=== PATIENT | male | born 1970 | race American Indian/Alaskan Native ===

== ENCOUNTER 2016-11-12 10:21 | Emergency (ER) | payer OTHER ==
[2016-11-12 11:21] LABS: Basophils % (Auto) 1.5 % (0.0-1.8); Eosinophils % (Auto) 1.8 % (0.0-4.3); Hematocrit 44.4 % (35.5-45.6); Hemoglobin 14.5 gm/dl (11.8-15.2); Mean Corpuscular HGB Conc 33 % (32-34); Mean Corpuscular Hemoglobin 27 pg (28-32); Mean Corpuscular Volume 83 fl (84-94); Platelet Count 216 K/mm3 (140-440); Red Blood Count 5.34 M/mm3 (3.65-5.03); Red Cell Distribution Width 14.2 % (13.2-15.2); White Blood Count 4.6 K/mm3 (4.5-11.0)
[2016-11-12 11:31] LABS: Anion Gap 16 mmol/L; BUN/Creatinine Ratio 8.88; Blood Urea Nitrogen 8 mg/dL (9-20); Calcium 8.9 mg/dL (8.4-10.2); Carbon Dioxide 26 mmol/L (22-30); Chloride 102.1 mmol/L (98-107); Glucose 108 mg/dL (75-100); Potassium 3.9 mmol/L (3.6-5.0); Sodium 140 mmol/L (137-145)
--- NOTE | 2016-11-12 20:09 | Emergency Department Report ---
ED Chest Pain HPI - General Chief Complaint: Chest Pain Stated Complaint: CHEST/ARM PAIN Time Seen by Provider: 11/12/16 19:56 Source: patient Mode of arrival: Ambulatory Limitations: No Limitations - History of Present Illness Initial Comments: This is a pleasant 46-year-old gentleman who indicates he sat on and off chest pains for the last 2 or 3 days. [place] a clinical [place] He describes his job as fairly physical. The pain he describes feels like it catches that his left side of his chest. It is somewhat reproducible with movements but not always. He does sometimes get a tingling sensation in the left hand as well with it. He denies any others associated symptoms no shortness of breath. No diaphoresis. Does not seem to be exertional in nature. Patient does describe smoking he has a grandfather who had heart disease no first-degree relatives however. He does have a primary physician he follows with. Onset/Timin -: Gradual, days(s) Onset: other (alternate times) Pain Location: left chest Pain Radiation: other (L hand) Severity: mild Quality: other (grabbing) Consistency: intermittent, now resolved Improves With: nothing Worsens With: nothing re: denies: nausea, vomting, diaphoresis Other Symptoms: denies: cough, fever Treatments Prior to Arrival: none - Related Data Allergies Allergy/AdvReac Type Severity Reaction Status Date / Time No Known Allergies Allergy Verified 11/12/16 10:39 JESUS score - Jesus Score Age > 65: (0) No Aspirin use within the Past 7 Days: (0) No 3 or more CAD Risk Factors: (0) No 2 or more Angina events in past 24 hrs: (1) Yes Known CAD with more than 50% Stenosis: (0) No Elevated Cardiac Markers: (0) No ST Deviation Greater than 0.5mm: (0) No JESUS Score: 1 ED Review of Systems ROS: Stated complaint: CHEST/ARM PAIN Other details as noted in HPI Constitutional: denies: chills, fever Eyes: denies: eye pain, eye discharge, vision change ENT: denies: ear pain, throat pain Respiratory: denies: cough, shortness of breath, wheezing Cardiovascular: chest pain. denies: palpitations Endocrine: no symptoms reported Gastrointestinal: denies: abdominal pain, nausea, diarrhea Genitourinary: denies: urgency, dysuria Musculoskeletal: denies: back pain, joint swelling, arthralgia Skin: denies: rash, lesions Neurological: denies: headache, weakness, paresthesias Psychiatric: denies: anxiety, depression Hematological/Lymphatic: denies: easy bleeding, easy bruising ED Past Medical Hx - Past Medical History Previous Medical History?: No - Surgical History Past Surgical History?: No - Social History Smoking Status: Current Every Day Smoker Substance Use Type: Alcohol ED Physical Exam - General Limitations: No Limitations General appearance: alert, in no apparent distress - Head Head exam: Present: atraumatic, normocephalic - Eye Eye exam: Present: normal appearance - ENT ENT exam: Present: mucous membranes moist - Neck Neck exam: Present: normal inspection - Respiratory Respiratory exam: Present: normal lung sounds bilaterally. Absent: respiratory distress - Cardiovascular Cardiovascular Exam: Present: regular rate, normal rhythm. Absent: systolic murmur, diastolic murmur, rubs, gallop - GI/Abdominal GI/Abdominal exam: Present: soft, normal bowel sounds - Rectal Rectal exam: Present: deferred - Extremities Exam Extremities exam: Present: normal inspection - Back Exam Back exam: Present: normal inspection - Neurological Exam Neurological exam: Present: alert, oriented X3 - Psychiatric Psychiatric exam: Present: normal affect, normal mood - Skin Skin exam: Present: warm, dry, intact, normal color. Absent: rash ED Course Vital Signs 11/12/16 11/12/16 10:36 20:19 Temperature 97.9 F 98.5 F Pulse Rate 72 77 Respiratory 16 18 Rate Blood Pressure 149/104 Blood Pressure 131/73 [Left] O2 Sat by Pulse 100 100 Oximetry - Reevaluation(s) Reevaluation #1: 11/12/16 20:28 ECG with sinus rhythm. Non- specific ST T wave abnormalities. No reciprocal changes noted. No ectopy noted. Reevaluation #2: 11/12/16 20:29 Lab tests are noted enzymes 3 are unremarkable. Pain is been present for several days. It is been very intermittent in nature. It does not seem to be associated with exertion. There are many components to his description this sounds like musculoskeletal pain. I'm inclined to believe that is more likely. His job description likely is contributing to this. I do however have some concern with the way he describes the pain is radiating to the left hand. I did encourage him to follow up with his primary physician for cardiac stress testing. I believe this would be an appropriate next step for him. Did have a discussion regarding smoking cessation and healthy lifestyle in general. He does appear quite fit in general. Vital signs are otherwise normal. PERC negative. I have a low suspicion for PE. The patient did ask about possibility of heartburn. This is in the differential. His description does not sound classic for heartburn however. Safe for home at this time. ED Medical Decision Making - Lab Data Result diagrams: 11/12/16 10:56 11/12/16 10:56 Critical care attestation.: If time is entered above; I have spent that time in minutes in the direct care of this critically ill patient, excluding procedure time. ED Disposition Clinical Impression: Chest pain Qualifiers: Chest pain type: unspecified Qualified Code(s): R07.9 - Chest pain, unspecified Disposition: DISCHARGED TO HOME OR SELFCARE Is pt being admited?: No Does the pt Need Aspirin: No Condition: Stable Instructions: Chest Pain (ED), Muscle Strain (ED) Additional Instructions: Take ibuprofen or Naprosyn as needed for pain. Follow a healthy lifestyle. Follow-up with your primary physician regarding stress testing in the next couple of weeks. Return if you have worsening chest pains. Referrals: PRIMARY CARE, [Primary Care Provider] - 3-5 Days Time of Disposition: 20:10
[2016-11-12 20:21] VITALS: BP 131/73
== END 2016-11-12 20:21 | disposition home or self-care (01) ==
LOC: ED 10:21
DX: R07.89 Other chest pain (principal); F17.200 Nicotine dependence, unspecified, uncomplicated
CPT/HCPCS: 36415; 80048; 84484; 85025; 93005; 93010; 99284